=== PATIENT | female | born 1990 | race Caucasian/White ===

== ENCOUNTER 2019-11-18 21:49 | Emergency (ER) | payer MEDICAID ==
[~2019-11-18] VITALS: Ht 162.6 cm; Wt 38.0 kg
[2019-11-18 22:12] LABS: URINE HCG NEGATIVE (NEG)
[2019-11-18 22:15] LABS: CLARITY,URINE CLOUDY (Clear); COLOR,URINE YELLOW (Yellow); GLUCOSE, URINE NEGATIVE (Neg); KETONES,URINE NEGATIVE (Neg); LEUKOCYTE ESTERASE ,URINE MODERATE (Neg); NITRITES, URINE POSITIVE (Neg); OCCULT BLOOD,URINE SMALL (Neg); PROTEIN,URINE 30 mg/dl (Neg)
[2019-11-18 22:18] LABS: UA COLLECTION TYPE CLN CATCH MIDSTREAM
[2019-11-18 22:24] LABS: BACTERIA,URINE 3+ /HPF (Neg); MUCUS STRANDS NONE SEEN /LPF (Neg); RBC,URINE 0-2 /HPF (0-2); SQUAMOUS EPITHELIAL CELL,UR FEW /LPF (FEW); WBC CLUMPS,URINE FEW /HPF (NEGATIVE); WBC,URINE TNTC /HPF (0-4)
[2019-11-18 22:48] LABS: BASOPHILS # (AUTO) 0.1 X10'3 (0-0.2); HEMOGLOBIN 11.9 g/dl (12.0-16.0)
[2019-11-18 22:50] LABS: BASOPHILS % (AUTO) 0.4 % (0-1); EOSINOPHILS # (AUTO) 0.2 X10'3 (0-0.9); EOSINOPHILS % (AUTO) 0.8 % (0-6); HEMATOCRIT 35.4 % (35.0-45.0); LYMPHOCYTES # (AUTO) 1.5 X10'3 (1.1-4.8); LYMPHOCYTES % (AUTO) 7.9 % (21-51); MEAN CORPUSCULAR HEMOGLOBIN 29.5 PG (27.0-31.0); MEAN CORPUSCULAR HGB CONC 33.7 g/dL (33.0-36.5); MEAN CORPUSCULAR VOLUME 87.5 FL (78-98); MEAN PLATELET VOLUME 6.8 FL (7.4-10.4); MONOCYTES # (AUTO) 1.4 X10'3 (0-0.9); MONOCYTES % (AUTO) 7.3 % (2-12); NEUTROPHILS # (AUTO) 16.3 X10'3 (1.8-7.7); NEUTROPHILS % (AUTO) 83.6 % (42-75); PLATELET COUNT 907 X10'3 (140-440); RED BLOOD COUNT 4.04 X10'6 (4.20-5.60); RED CELL DISTRIBUTION WIDTH 13.2 % (11.5-14.5); WHITE BLOOD COUNT 19.5 X10'3 (4.5-11.0)
[2019-11-18 22:54] LABS: ALANINE AMINOTRANSFERASE 67 U/L (12-78); ALBUMIN/GLOBULIN RATIO 0.6 (1.1-1.5); ALKALINE PHOSPHATASE 171 IU/L (46-116); ANION GAP 10 (8-16); ASPARTATE AMINO TRANSFERASE 40 U/L (10-37); BILIRUBIN,TOTAL 0.2 MG/DL (0.1-1.0); BLOOD UREA NITROGEN 11 MG/DL (7-18); BUN/CREATININE RATIO 16.7 (6.6-38.0); CALCIUM 8.9 MG/DL (8.5-10.1); CHLORIDE 100 MMOL/L (99-107); CREATININE 0.66 MG/DL (0.40-0.90); GLUCOSE 99 MG/DL (70-104); LIPASE 138 U/L (73-393); POTASSIUM 3.1 MMOL/L (3.5-5.1); SODIUM 138 MMOL/L (135-145); TOTAL CARBON DIOXIDE 28.1 MMOL/L (24-32); TOTAL PROTEIN 7.7 G/DL (6.4-8.2); eGFR > 90 ML/MIN
[2019-11-18] MEDS ORDERED: normal saline 1000ML IV soln IVB ONE (23:10)
[2019-11-18] MEDS ORDERED: CefTRIAXone/D5W-Rocephin 1gm 50 ML IV ONE (23:10)
--- NOTE | 2019-11-18 23:36 | NUR ---
PIV PLACED AND 1ST5 OF 2 LITERS NS INFUSING. AWAITING ROCEFIN GTT. HR 114, OTHERWISE VSS. PTS PAIN TO L ABD AND LEFT FLANK 6 OUT OF 10.
[2019-11-19] MEDS ORDERED: potassium chloride 10mEq ER tablet PO STA (00:11)
[2019-11-19] MEDS ORDERED: CEPH500C5 PO (00:15)
[2019-11-19] MEDS ORDERED: LEVO750T21 PO (00:20)
[2019-11-19] MEDS ORDERED: PENI500T2 PO (00:20)
[2019-11-19 01:13] VITALS: BP 101/58
== END 2019-11-19 01:16 | disposition home or self-care (01) ==
LOC: ER 21:50
DX: N12 Tubulo-interstitial nephritis, not specified as acute or chronic (principal); K04.7 Periapical abscess without sinus; R50.9 Fever, unspecified; R10.9 Unspecified abdominal pain; Z87.442 Personal history of urinary calculi; Z56.0 Unemployment, unspecified; Z79.2 Long term (current) use of antibiotics
CPT/HCPCS: 36415; 80053; 81001; 81025; 83690; 85025; 87077; 87088; 87186; 96361; 96365; 99285; J0696; J7030

== ENCOUNTER 2019-12-30 19:45 | Emergency (ER) | payer MEDICAID ==
[~2019-12-30] VITALS: Ht 162.6 cm; Wt 47.7 kg
[2019-12-30 20:22] LABS: COLOR,URINE YELLOW (Yellow); GLUCOSE, URINE NEGATIVE (Neg); KETONES,URINE NEGATIVE (Neg); LEUKOCYTE ESTERASE ,URINE LARGE (Neg); NITRITES, URINE POSITIVE (Neg); OCCULT BLOOD,URINE TRACE-INTACT (Neg); PROTEIN,URINE NEGATIVE (Neg); UROBILINOGEN,URINE 0.2 E.U/dL (0.2-1.0)
[2019-12-30 20:24] LABS: CLARITY,URINE SLIGHTLY CLOUDY (Clear); UA COLLECTION TYPE CLN CATCH MIDSTREAM
[2019-12-30 20:31] LABS: URINE HCG NEGATIVE (NEG)
[2019-12-30 20:34] LABS: BASOPHILS # (AUTO) 0.1 X10'3 (0-0.2); BASOPHILS % (AUTO) 0.9 % (0-1); EOSINOPHILS # (AUTO) 0.2 X10'3 (0-0.9); EOSINOPHILS % (AUTO) 1.4 % (0-6); HEMATOCRIT 36.9 % (35.0-45.0); HEMOGLOBIN 12.5 g/dl (12.0-16.0); LYMPHOCYTES % (AUTO) 17.7 % (21-51); MEAN CORPUSCULAR HEMOGLOBIN 29.8 PG (27.0-31.0); MEAN CORPUSCULAR HGB CONC 33.9 g/dL (33.0-36.5); MEAN PLATELET VOLUME 6.9 FL (7.4-10.4); MONOCYTES # (AUTO) 1.1 X10'3 (0-0.9); MONOCYTES % (AUTO) 9.7 % (2-12); NEUTROPHILS # (AUTO) 8.1 X10'3 (1.8-7.7); NEUTROPHILS % (AUTO) 70.3 % (42-75); PLATELET COUNT 518 X10'3 (140-440); RED BLOOD COUNT 4.19 X10'6 (4.20-5.60); RED CELL DISTRIBUTION WIDTH 14.6 % (11.5-14.5); WHITE BLOOD COUNT 11.5 X10'3 (4.5-11.0)
[2019-12-30 20:34] LABS: BACTERIA,URINE 3+ /HPF (Neg); MUCUS STRANDS NONE SEEN /LPF (Neg); SQUAMOUS EPITHELIAL CELL,UR FEW /LPF (FEW); WBC,URINE 30-50 /HPF (0-4)
[2019-12-30 20:46] LABS: ALANINE AMINOTRANSFERASE 60 U/L (12-78); ALBUMIN 3.2 G/DL (3.4-5.0); ALBUMIN/GLOBULIN RATIO 0.7 (1.1-1.5); ALKALINE PHOSPHATASE 158 IU/L (46-116); ANION GAP 9 (8-16); ASPARTATE AMINO TRANSFERASE 39 U/L (10-37); BILIRUBIN,TOTAL 0.2 MG/DL (0.1-1.0); BLOOD UREA NITROGEN 8 MG/DL (7-18); BUN/CREATININE RATIO 10.4 (6.6-38.0); CALCIUM 8.8 MG/DL (8.5-10.1); CHLORIDE 100 MMOL/L (99-107); CREATININE 0.77 MG/DL (0.40-0.90); GLUCOSE 104 MG/DL (70-104); LIPASE 112 U/L (73-393); POTASSIUM 3.2 MMOL/L (3.5-5.1); SODIUM 140 MMOL/L (135-145); TOTAL CARBON DIOXIDE 30.9 MMOL/L (24-32); TOTAL PROTEIN 7.5 G/DL (6.4-8.2); eGFR 89 ML/MIN
[2019-12-30] MEDS ORDERED: CEFD300C3 PO (21:07)
[2019-12-30 21:26] VITALS: BP 96/66
== END 2019-12-30 21:29 | disposition home or self-care (01) ==
LOC: ER 19:46
DX: N10 Acute pyelonephritis (principal); R10.32 Left lower quadrant pain; R50.9 Fever, unspecified; F17.200 Nicotine dependence, unspecified, uncomplicated; Z87.442 Personal history of urinary calculi; Z87.440 Personal history of urinary (tract) infections; Z72.89 Other problems related to lifestyle; Z56.0 Unemployment, unspecified; Z79.2 Long term (current) use of antibiotics
CPT/HCPCS: 36415; 80053; 81001; 81025; 83690; 85025; 87077; 87088; 87186; 99283

== ENCOUNTER 2022-01-12 16:57 | Emergency (ER) | payer MEDICAID ==
[~2022-01-12] VITALS: Ht 162.6 cm; Wt 45.5 kg
[2022-01-12 17:11] VITALS: BP 146/88
== END 2022-01-12 21:21 | disposition left against medical advice (07) ==
LOC: ER 16:58
DX: R10.9 Unspecified abdominal pain (principal); Z53.21 Procedure and treatment not carried out due to patient leaving prior to being seen by health care provider

== ENCOUNTER 2023-09-29 11:53 | Emergency (ER) | payer SELFPAY | END 2023-09-29 13:39 | disposition left against medical advice (07) | LOC: ER 11:53 | DX: N23 Unspecified renal colic (principal); Z53.21 Procedure and treatment not carried out due to patient leaving prior to being seen by health care provider ==

== ENCOUNTER 2023-10-01 17:23 | Emergency (ER) | payer MEDICAID ==
[~2023-10-01] VITALS: Ht 160 cm; Wt 42.0 kg
[2023-10-01 18:19] LABS: URINE HCG NEGATIVE (NEG)
[2023-10-01 18:29] LABS: BILIRUBIN,URINE SMALL (Neg); CLARITY,URINE TURBID (Clear); GLUCOSE, URINE NEGATIVE (Neg); KETONES,URINE TRACE mg/dl (Neg); LEUKOCYTE ESTERASE ,URINE MODERATE (Neg); NITRITES, URINE NEGATIVE (Neg); OCCULT BLOOD,URINE TRACE-INTACT (Neg); PROTEIN,URINE 30 mg/dl (Neg); UROBILINOGEN,URINE 0.2 E.U/dL (0.2-1.0)
[2023-10-01 18:35] LABS: COLOR,URINE DARK YELLOW (Yellow); UA COLLECTION TYPE CLN CATCH MIDSTREAM
[2023-10-01 18:36] LABS: BACTERIA,URINE 3+ /HPF (Neg); RENAL CELLS, URINE FEW /HPF; SQUAMOUS EPITHELIAL CELL,UR FEW /LPF (FEW); TRANSITIONAL EPI CELLS,URINE FEW /HPF; WBC,URINE 30-50 /HPF (0-4)
[2023-10-01 18:37] LABS: AMORPHOUS URATES 1+
[2023-10-01] MEDS: HYDROcodone/acetaminophen 5mg/325mg tablet PO ONE (18:44)
[2023-10-01] MEDS: ondansetron 4mg rapidly disintigrating tab PO ONE (18:44)
[2023-10-01 19:01] LABS: HEMOGLOBIN 12.7 g/dl (12.0-16.0)
[2023-10-01 19:02] LABS: BASOPHILS % (AUTO) 0.2 % (0-1); EOSINOPHILS # (AUTO) 0.1 X10'3 (0-0.9); EOSINOPHILS % (AUTO) 0.5 % (0-6); HEMATOCRIT 37.2 % (35.0-45.0); LYMPHOCYTES # (AUTO) 0.6 X10'3 (1.1-4.8); LYMPHOCYTES % (AUTO) 2.8 % (21-51); MEAN CORPUSCULAR HEMOGLOBIN 31.3 PG (27.0-31.0); MEAN CORPUSCULAR HGB CONC 34.1 g/dL (33.0-36.5); MEAN CORPUSCULAR VOLUME 91.9 FL (78-98); MEAN PLATELET VOLUME 7.2 FL (7.4-10.4); MONOCYTES # (AUTO) 1.1 X10'3 (0-0.9); NEUTROPHILS # (AUTO) 19.5 X10'3 (1.8-7.7); NEUTROPHILS % (AUTO) 91.5 % (42-75); PLATELET COUNT 414 X10'3 (140-440); RED BLOOD COUNT 4.05 X10'6 (4.20-5.60); RED CELL DISTRIBUTION WIDTH 13.3 % (11.5-14.5); WHITE BLOOD COUNT 21.3 X10'3 (4.5-11.0)
[2023-10-01 19:03] LABS: ALANINE AMINOTRANSFERASE 37 U/L (12-78); ALBUMIN 2.8 G/DL (3.4-5.0); ALBUMIN/GLOBULIN RATIO 0.6 (1.1-1.5); ALKALINE PHOSPHATASE 178 IU/L (46-116); ANION GAP 11 (8-16); ASPARTATE AMINO TRANSFERASE 19 U/L (10-37); BILIRUBIN,TOTAL 0.9 MG/DL (0.1-1.0); BLOOD UREA NITROGEN 17 MG/DL (7-18); BUN/CREATININE RATIO 11.3 (10.0-20.0); CALCIUM 9.4 MG/DL (8.5-10.1); CHLORIDE 96 MMOL/L (99-107); CREATININE 1.51 MG/DL (0.40-0.90); GLUCOSE 144 MG/DL (70-104); LIPASE 16 U/L (16-77); SODIUM 135 MMOL/L (135-145); TOTAL PROTEIN 7.5 G/DL (6.4-8.2); eCRCL 35 ML/MIN; eGFR 40 ML/MIN
[2023-10-01 19:10] LABS: POTASSIUM 2.8 MMOL/L (3.5-5.1)
[2023-10-01] MEDS: CefTRIAXone 2gm/D5W 50ml BAG 50 ML IV ONE (19:34)
[2023-10-01] MEDS: potassium Cl 20 mEq SR tablet PO STA (19:42)
[2023-10-01] MEDS ORDERED: CEPH-585 PO (20:11)
[2023-10-01] MEDS ORDERED: POTA-207 PO (20:19)
[2023-10-01] MEDS ORDERED: HYDR-3965 PO (20:19)
[2023-10-01] MEDS ORDERED: ONDA8TAB13 PO (20:19)
[2023-10-01] MEDS: normal saline 1000ml 1,000 ML IV ONE (20:35)
[2023-10-01 21:28] VITALS: BP 98/56; PULSE 90; RESP 14; TEMP 98.9; O2SAT 100
== END 2023-10-01 21:57 | disposition home or self-care (01) ==
LOC: ER 17:23
DX: N10 Acute pyelonephritis (principal); E87.6 Hypokalemia; F10.90 Alcohol use, unspecified, uncomplicated; Z56.0 Unemployment, unspecified; Z79.2 Long term (current) use of antibiotics; Z79.899 Other long term (current) drug therapy; Z87.442 Personal history of urinary calculi
CPT/HCPCS: 36415; 80053; 81001; 81025; 83690; 84145; 85025; 87088; 96361; 96365; 99284; J0696; J7030; 87077; 87186

== ENCOUNTER 2023-10-09 09:33 | Emergency (ER) | payer MEDICAID ==
[~2023-10-09] VITALS: Ht 160 cm; Wt 41.5 kg
[~2023-10-09 09:33] MED LIST: CEPH-585 PO; HYDR-3965 PO; ONDA-245 PO; POTA-207 PO
[2023-10-09 09:34] VITALS: TEMP 97.3
[2023-10-09 10:45] VITALS: BP 131/91; PULSE 115; RESP 14; O2SAT 100
[2023-10-09 10:59] LABS: BASOPHILS # (AUTO) 0.1 X10'3 (0-0.2); BASOPHILS % (AUTO) 0.4 % (0-1); EOSINOPHILS # (AUTO) 0.2 X10'3 (0-0.9); EOSINOPHILS % (AUTO) 1.2 % (0-6); HEMATOCRIT 40.1 % (35.0-45.0); HEMOGLOBIN 12.9 g/dl (12.0-16.0); LYMPHOCYTES # (AUTO) 1.4 X10'3 (1.1-4.8); LYMPHOCYTES % (AUTO) 8.9 % (21-51); MEAN CORPUSCULAR HGB CONC 32.3 g/dL (33.0-36.5); MEAN CORPUSCULAR VOLUME 92.8 FL (78-98); MEAN PLATELET VOLUME 6.3 FL (7.4-10.4); MONOCYTES # (AUTO) 0.9 X10'3 (0-0.9); MONOCYTES % (AUTO) 5.7 % (2-12); NEUTROPHILS # (AUTO) 13.5 X10'3 (1.8-7.7); NEUTROPHILS % (AUTO) 83.8 % (42-75); RED BLOOD COUNT 4.32 X10'6 (4.20-5.60); WHITE BLOOD COUNT 16.1 X10'3 (4.5-11.0)
[2023-10-09 11:04] LABS: ALBUMIN 2.9 G/DL (3.4-5.0); ANION GAP 8 (8-16); BLOOD UREA NITROGEN 8 MG/DL (7-18); BUN/CREATININE RATIO 10.4 (10.0-20.0); CALCIUM 9.7 MG/DL (8.5-10.1); CHLORIDE 99 MMOL/L (99-107); CREATININE 0.77 MG/DL (0.40-0.90); GLUCOSE 107 MG/DL (70-104); SODIUM 136 MMOL/L (135-145); TOTAL CARBON DIOXIDE 28.9 MMOL/L (24-32); eCRCL 69 ML/MIN; eGFR 87 ML/MIN
[2023-10-09 11:05] LABS: PLATELET COUNT 1103 X10'3 (140-440)
[2023-10-09 11:28] LABS: PLATELET ESTIMATE INCREASED; TOTAL CELLS COUNTED 100
[2023-10-09 11:33] LABS: BILIRUBIN,URINE NEGATIVE (Neg); CLARITY,URINE CLEAR (Clear); COLOR,URINE YELLOW (Yellow); GLUCOSE, URINE NEGATIVE (Neg); KETONES,URINE NEGATIVE (Neg); LEUKOCYTE ESTERASE ,URINE TRACE (Neg); NITRITES, URINE NEGATIVE (Neg); OCCULT BLOOD,URINE TRACE-INTACT (Neg); PH,URINE 6.5 (4.8-8.0); PROTEIN,URINE NEGATIVE (Neg); URINE AMPHETAMINE SCREEN POSITIVE (Neg); URINE BARBITUATE SCREEN NEGATIVE (Neg); URINE BENZODIAZEPINES SCREEN NEGATIVE (Neg); URINE CANNABINOID SCREEN NEGATIVE (Neg); URINE COCAINE SCREEN NEGATIVE (Neg); URINE METHADONE SCREEN NEGATIVE (Neg); URINE OPIATE SCREEN POSITIVE (Neg); URINE PHENCYCLIDINE SCREEN NEGATIVE (Neg); UROBILINOGEN,URINE 0.2 E.U/dL (0.2-1.0)
[2023-10-09 11:34] LABS: UA COLLECTION TYPE NON-SPECIFIED
[2023-10-09 11:40] LABS: BACTERIA,URINE FEW /HPF (Neg); MUCUS STRANDS FEW /LPF (Neg); SQUAMOUS EPITHELIAL CELL,UR FEW /LPF (FEW)
== END 2023-10-09 12:24 | disposition left against medical advice (07) ==
LOC: ER 09:33
DX: R51.9 Headache, unspecified (principal); R00.0 Tachycardia, unspecified; D75.838 Other thrombocytosis; F10.90 Alcohol use, unspecified, uncomplicated; Z79.2 Long term (current) use of antibiotics; Z79.899 Other long term (current) drug therapy; Z87.442 Personal history of urinary calculi; Z56.0 Unemployment, unspecified
CPT/HCPCS: 36415; 80048; 80305; 81001; 83605; 84145; 85007; 85025; 87040; 87088; 93005; 99284

== ENCOUNTER 2024-03-30 21:16 | Inpatient (IN) | payer MEDICAID ==
[~2024-03-30] VITALS: Ht 160 cm; Wt 43.1 kg
[~2024-03-30 21:16] MED LIST changes: -CEPH-585 PO; -HYDR-3965 PO; -POTA-207 PO
[2024-03-30 22:18] LABS: BASOPHILS # (AUTO) 0.1 X10'3 (0-0.2); EOSINOPHILS # (AUTO) 0.3 X10'3 (0-0.9); EOSINOPHILS % (AUTO) 2.1 % (0-6); RED CELL DISTRIBUTION WIDTH 13.6 % (11.5-14.5)
[2024-03-30 22:19] LABS: BASOPHILS % (AUTO) 0.6 % (0-1); HEMATOCRIT 38.8 % (35.0-45.0); HEMOGLOBIN 12.8 g/dl (12.0-16.0); LYMPHOCYTES # (AUTO) 2.8 X10'3 (1.1-4.8); LYMPHOCYTES % (AUTO) 21.2 % (21-51); MEAN CORPUSCULAR HEMOGLOBIN 29.5 PG (27.0-31.0); MEAN CORPUSCULAR HGB CONC 33.1 g/dL (33.0-36.5); MEAN CORPUSCULAR VOLUME 88.9 FL (78-98); MEAN PLATELET VOLUME 6.4 FL (7.4-10.4); MONOCYTES # (AUTO) 0.7 X10'3 (0-0.9); MONOCYTES % (AUTO) 5.6 % (2-12); NEUTROPHILS # (AUTO) 9.3 X10'3 (1.8-7.7); NEUTROPHILS % (AUTO) 70.5 % (42-75); PLATELET COUNT 631 X10'3 (140-440); RED BLOOD COUNT 4.36 X10'6 (4.20-5.60); WHITE BLOOD COUNT 13.2 X10'3 (4.5-11.0)
[2024-03-30 22:28] LABS: PROTHROMBIN TIME 10.3 SECONDS (9.0-12.0)
[2024-03-30 22:33] LABS: ALANINE AMINOTRANSFERASE 19 U/L (12-78); ALBUMIN 3.7 G/DL (3.4-5.0); ALBUMIN/GLOBULIN RATIO 0.8 (1.1-1.5); ALKALINE PHOSPHATASE 122 IU/L (46-116); ANION GAP 8 (8-16); ASPARTATE AMINO TRANSFERASE 16 U/L (10-37); BILIRUBIN,TOTAL 0.2 MG/DL (0.1-1.0); BLOOD UREA NITROGEN 14 MG/DL (7-18); BUN/CREATININE RATIO 13.7 (10.0-20.0); CALCIUM 9.9 MG/DL (8.5-10.1); CHLORIDE 105 MMOL/L (99-107); CREATININE 1.02 MG/DL (0.40-0.90); GLUCOSE 104 MG/DL (70-104); POTASSIUM 4.8 MMOL/L (3.5-5.1); SODIUM 142 MMOL/L (135-145); TOTAL CARBON DIOXIDE 29.4 MMOL/L (24-32); TOTAL PROTEIN 8.3 G/DL (6.4-8.2); eCRCL 53 ML/MIN; eGFR 62 ML/MIN
[2024-03-30 22:40] LABS: PRO BRAIN NATRIURETIC PEPTIDE 196 PG/ML (0-125)
[2024-03-30] MEDS ORDERED: iohexol 300mg/ml 100ml inj. ONE (22:48)
[2024-03-30] MEDS: HYDROmorphone inj. 0.5 MG/0.5 ML DISP.SYRIN IV ONE (22:49)
[2024-03-30] MEDS: normal saline 1000ml 1,000 ML IV ONE (22:49)
[2024-03-30] MEDS: piperacillin/tazo 4.5gm/100ml 100 ML IV ONE (22:50)
[2024-03-30 23:08] LABS: BETA HCG,QUANTITATIVE < 1.0 mIU/ml
[2024-03-31] VITALS (10 sets, daily range): BP systolic 98–123; BP diastolic 56–77; PULSE 59–110; RESP 12–18; TEMP 98.1–98.5; O2SAT 95–100
[2024-03-31 00:39] LABS: BILIRUBIN,URINE NEGATIVE (Neg); CLARITY,URINE CLOUDY (Clear); COLOR,URINE YELLOW (Yellow); GLUCOSE, URINE NEGATIVE (Neg); KETONES,URINE NEGATIVE (Neg); LEUKOCYTE ESTERASE ,URINE NEGATIVE (Neg); NITRITES, URINE NEGATIVE (Neg); OCCULT BLOOD,URINE NEGATIVE (Neg); PH,URINE 7.5 (4.8-8.0); PROTEIN,URINE NEGATIVE (Neg); UROBILINOGEN,URINE 0.2 E.U/dL (0.2-1.0)
[2024-03-31 00:48] LABS: UA COLLECTION TYPE CLN CATCH MIDSTREAM
[2024-03-31 00:49] LABS: AMORPHOUS PHOSPHATES 1+; BACTERIA,URINE FEW /HPF (Neg); RBC,URINE NONE SEEN /HPF (0-2); SQUAMOUS EPITHELIAL CELL,UR FEW /LPF (FEW); WBC,URINE 0-4 /HPF (0-4)
[2024-03-31] MEDS ORDERED: acetaminophen 325mg tablet PO PRN (01:20)
[2024-03-31] MEDS ORDERED: magnesium sulf-water 4G/100mL 100 ML IV PRN (01:20)
[2024-03-31] MEDS ORDERED: mag hydrox/Alum hydrox/simeth 30ml oral suspension PO PRN (01:20)
[2024-03-31] MEDS ORDERED: morphine 2 MG/ML inj. syringe IV PRN (01:20)
[2024-03-31] MEDS ORDERED: magnesium Cl slow-release 64mg tablet PO PRN (01:20)
[2024-03-31] MEDS ORDERED: ondansetron/PF 4mg/2ml inj IV PRN (01:20)
[2024-03-31] MEDS ORDERED: magnesium hydroxide 30ml (MOM) UD suspension PO PRN (01:20)
[2024-03-31] MEDS ORDERED: magnesium sulf-water 2g/50mL 50 ML IV PRN (01:20)
[2024-03-31] MEDS ORDERED: potassium Cl 20 mEq SR tablet PO PRN ×2 (01:20)
[2024-03-31] MEDS ORDERED: HYDROmorphone/PF 0.2 MG/ML SYRINGE IV PRN (01:20)
[2024-03-31] MEDS ORDERED: potassium Cl 40MEQ/1/2NS 520ml 520 ML IV PRN (01:20)
[2024-03-31 01:55] LABS: MAGNESIUM 2.2 MG/DL (1.5-2.4)
[2024-03-31] MEDS: normal saline 1000ml 1,000 ML IV ONE (02:22)
[2024-03-31] MEDS: normal saline 1000ml 1,000 ML IV SCH (02:58)
[2024-03-31] MEDS: vancomycin/NS 1 GM ADD-VANTAGE 250 ML IV ONE (02:59)
[2024-03-31] MEDS: HYDROmorphone inj. 0.5 MG/0.5 ML DISP.SYRIN IV PRN (03:49)
[2024-03-31] MEDS: morphine 2 MG/ML inj. syringe IV PRN (07:30)
[2024-03-31] MEDS: K and/or MAG REPLACEMENT MC SCH (08:00)
[2024-03-31] MEDS: docusate sod 100mg capsule PO SCH (08:30)
[2024-03-31] MEDS: piperacillin/tazo 3.375gm/50ml 50 ML IV SCH (08:31)
[2024-03-31] MEDS ORDERED: NO HOME MEDS (11:38)
[2024-03-31] MEDS: VANCOMYCIN 500MG/WATER FOR INJ (PEG) PREMIX 100 ML IV SCH (15:54)
[2024-03-31] MEDS: FLU VACC TS2024-25(6MOS UP)/PF 45 MCG/0.5 ML SYRINGE IMVAC ONE (15:56)
[2024-04-01 06:00] VITALS: BP 105/72; PULSE 81; RESP 18; TEMP 98; O2SAT 100
[2024-04-01 07:25] LABS: BASOPHILS # (AUTO) 0.1 X10'3 (0-0.2); BASOPHILS % (AUTO) 0.6 % (0-1); EOSINOPHILS # (AUTO) 0.3 X10'3 (0-0.9); EOSINOPHILS % (AUTO) 3.4 % (0-6); HEMATOCRIT 34.7 % (35.0-45.0); HEMOGLOBIN 11.9 g/dl (12.0-16.0); LYMPHOCYTES # (AUTO) 1.9 X10'3 (1.1-4.8); LYMPHOCYTES % (AUTO) 20.8 % (21-51); MEAN CORPUSCULAR HEMOGLOBIN 30.4 PG (27.0-31.0); MEAN CORPUSCULAR HGB CONC 34.3 g/dL (33.0-36.5); MEAN CORPUSCULAR VOLUME 88.5 FL (78-98); MEAN PLATELET VOLUME 6.5 FL (7.4-10.4); MONOCYTES # (AUTO) 0.6 X10'3 (0-0.9); MONOCYTES % (AUTO) 6.2 % (2-12); NEUTROPHILS # (AUTO) 6.3 X10'3 (1.8-7.7); PLATELET COUNT 542 X10'3 (140-440); RED BLOOD COUNT 3.92 X10'6 (4.20-5.60); RED CELL DISTRIBUTION WIDTH 13.1 % (11.5-14.5); WHITE BLOOD COUNT 9.2 X10'3 (4.5-11.0)
[2024-04-01 08:00] VITALS: RESP 18; O2SAT 100
[2024-04-01 08:44] LABS: ALANINE AMINOTRANSFERASE 10 U/L (12-78); ALBUMIN 2.9 G/DL (3.4-5.0); ALBUMIN/GLOBULIN RATIO 0.7 (1.1-1.5); ALKALINE PHOSPHATASE 92 IU/L (46-116); ANION GAP 5 (8-16); ASPARTATE AMINO TRANSFERASE 10 U/L (10-37); BILIRUBIN,TOTAL 0.4 MG/DL (0.1-1.0); BLOOD UREA NITROGEN 11 MG/DL (7-18); BUN/CREATININE RATIO 13.9 (10.0-20.0); CALCIUM 8.5 MG/DL (8.5-10.1); CHLORIDE 104 MMOL/L (99-107); CREATININE 0.79 MG/DL (0.40-0.90); GLUCOSE 82 MG/DL (70-104); MAGNESIUM 2.7 MG/DL (1.5-2.4); POTASSIUM 4.1 MMOL/L (3.5-5.1); SODIUM 137 MMOL/L (135-145); TOTAL CARBON DIOXIDE 28.5 MMOL/L (24-32); TOTAL PROTEIN 6.9 G/DL (6.4-8.2); eCRCL 69 ML/MIN; eGFR 84 ML/MIN
[2024-04-01 10:00] VITALS: BP 107/71; PULSE 89; RESP 16; TEMP 98.3; O2SAT 99
[2024-04-01] MEDS: VANCOMYCIN LEVEL IV ONE (14:58)
[2024-04-01 15:19] VITALS: RESP 14
[2024-04-01] MEDS ORDERED: AMOX-580 PO (17:09)
[2024-04-01] MEDS ORDERED: LINE600T14 PO (17:09)
[2024-04-02] MEDS ORDERED: VANCOMYCIN/WATER FOR INJ (PEG) 750MG/150 ML IVPB IV SCH (03:00)
[2024-04-02] MEDS ORDERED: linezolid 600mg tablet PO SCH (08:00)
[2024-04-02] MEDS ORDERED: amox tr/potassium clavulanate 875/125mg TAB PO SCH (08:30)
[2024-04-03] MEDS ORDERED: VANCOMYCIN LEVEL IV ONE (14:30)
== END 2024-04-01 18:00 | disposition home or self-care (01) | DRG 721 ==
LOC: ER 21:17 → ED HOLD 03-31 01:21 → ORTHO 4S 03-31 17:20
PROVIDERS: ADMIT Internal Medicine Critical Care Medicine; ATTEND Nurse Practitioner Family
PROC: BW211ZZ Computerized Tomography (CT Scan) of Abdomen and Pelvis using Low Osmolar Contrast (ICD-10-PCS; principal; 2024-03-30)
DX: T81.41XA Infection following a procedure, superficial incisional surgical site, initial encounter (principal); A41.9 Sepsis, unspecified organism; T81.30XA Disruption of wound, unspecified, initial encounter; L03.311 Cellulitis of abdominal wall; F41.9 Anxiety disorder, unspecified; Y82.8 Other medical devices associated with adverse incidents; Y83.8 Other surgical procedures as the cause of abnormal reaction of the patient, or of later complication, without mention of misadventure at the time of the procedure; Y92.89 Other specified places as the place of occurrence of the external cause; Z87.442 Personal history of urinary calculi; Z90.5 Acquired absence of kidney; Z82.49 Family history of ischemic heart disease and other diseases of the circulatory system
CPT/HCPCS: 36415; 71045; 74177; 80053; 80202; 81001; 83605; 83735; 83880; 84702; 85025; 85610; 87040; 87081; 90686; 96365; 96375; 99285; A6449; G0378; J1171; J2270; J2543; J3370; J3372; J7030; Q9967